=== PATIENT | female | born 1970 | race Caucasian/White ===

== ENCOUNTER 2025-02-20 23:56 | Emergency (ER) | payer OTHER ==
[~2025-02-20] VITALS: Ht 167.6 cm; Wt 76.2 kg
[2025-02-21 00:56] LABS: PLATELET COUNT (AUTO) 316 K/uL (179-408); RED BLOOD CELL COUNT(AUTO) 5.06 MIL/uL (3.63-4.92); RED CELL DISTRIBUTION WIDTH 12.8 % (12.3-17.7); WHITE BLOOD COUNT (AUTO) 7.8 K/uL (3.8-11.8)
[2025-02-21] MEDS ORDERED: METOCLOPRAMIDE HCL 10 MG/2 ML VIAL ONE (00:57)
[2025-02-21] MEDS ORDERED: MORPHINE SULFATE 2 MG/1 ML DISP.SYRIN ONE (00:58)
[2025-02-21] MEDS: METOCLOPRAMIDE HCL 10 MG/2 ML VIAL IV ONE (01:07)
[2025-02-21] MEDS: MORPHINE SULFATE 2 MG/1 ML DISP.SYRIN IV ONE (01:07)
[2025-02-21 01:28] LABS: ASPARTATE AMINOTRANSFERASE 12 U/L (15-37); CREATININE 0.7 mg/dL (0.6-1.3); SODIUM SERUM 145 mmol/L (136-145); TOTAL PROTEIN, SERUM 8.5 g/dL (6.4-8.2); UREA NITROGEN, BLOOD 19 mg/dL (7-18)
[2025-02-21 02:00] VITALS: BP 145/91
[2025-02-21] MEDS ORDERED: HYDR-3972 PO (03:55)
[2025-02-21 04:14] VITALS: BP 140/87; O2SAT 97
== END 2025-02-21 03:55 | disposition home or self-care (01) ==
LOC: ER 02-21
DX: R07.89 Other chest pain (principal); R06.02 Shortness of breath
CPT/HCPCS: 99285; 96374; 71045; 96375; 80076; 80048; 83880; 85025; 85379; 85730; 84484 ×3; 36415; 93005; J2765; J2270; A4606; A4663